=== PATIENT | female | born 1975 | race Hispanic/Latino ===

== ENCOUNTER 2020-08-03 06:20 | Emergency (ER) | payer BC ==
[2020-08-03 06:30] VITALS: BP 169/104
[2020-08-03] MEDS ORDERED: dexAMETHasone 4 MG/ML VIAL IV ONE (06:42)
[2020-08-03] MEDS ORDERED: FAMOTIDINE 20 MG/2 ML INJ IV ONE (06:42)
[2020-08-03] MEDS ORDERED: diphenhydrAMINE 50 MG/ML VIAL IV ONE (06:42)
--- NOTE | 2020-08-03 06:50 | Emergency Department Report ---
HPI - General Chief Complaint: Allergic Reaction PUI?: No Time Seen by Provider: 08/03/20 06:38 - HPI HPI: This is a 45-year-old female who experienced left-sided tongue swelling this morning. She felt like her speech was affected but no shortness of breath occurred. She states that within the last year she was taken off lisinopril after an episode of lower lip swelling. She did not require an airway procedure. She is taking amlodipine now for her blood pressure only. Last night she ate some pecan chicken which she thinks might be the instigator. She has no other complaint. ED Past Medical Hx - Past Medical History Previous Medical History?: Yes Hx Hypertension: Yes - Surgical History Past Surgical History?: Yes Additional Surgical History: Right Hip - Social History Smoking Status: Never Smoker Substance Use Type: None ED Review of Systems ROS: Stated complaint: SWOLLEN TONGUE Other details as noted in HPI Constitutional: denies: chills, fever Eyes: denies: eye pain, vision change ENT: other. denies: ear pain, throat pain Respiratory: denies: cough, shortness of breath, wheezing Cardiovascular: denies: chest pain, palpitations Endocrine: no symptoms reported Gastrointestinal: denies: abdominal pain, nausea, diarrhea Genitourinary: denies: urgency, dysuria, discharge Musculoskeletal: denies: back pain, joint swelling, arthralgia Skin: denies: rash, lesions Neurological: denies: headache, weakness, paresthesias Psychiatric: denies: anxiety, depression Hematological/Lymphatic: denies: easy bleeding, easy bruising Physical Exam - Physical Exam Vital Signs: Vital Signs 08/03/20 06:28 Temperature 98.3 F Pulse Rate 102 H Respiratory 8 L Rate Blood Pressure 169/104 O2 Sat by Pulse 96 Oximetry Physical Exam: ED Physical Exam - General Limitations: None General appearance: AAOx4 - Head Head exam: Present: atraumatic - Eye Eye exam: Present: other (Symmetrical) - ENT ENT exam: Present: normal orophraynx posteriorly, no A/W edema, mild swelling L side tongue, no obstruction - Neck Neck exam: Absent: tenderness, meningismus - Respiratory Respiratory exam: Clear to auscultation - Cardiovascular Cardiovascular Exam: Present: regular rate, normal rhythm, no systolic or diastolic murmur, rub, gallop - GI/Abdominal GI/Abdominal exam: Present: soft. Absent: non-distended - Extremities Exam Extremities exam: Absent: pedal edema - Back Exam Back exam: Present: grossly without abn finding - Neurological Exam Neurological exam: Cr N 2-12 without deficit, no motor or sensory deficit - Skin Skin exam: Present: warm, dry, or abel or conspicuous lesion ED Course Vital Signs 08/03/20 06:28 Temperature 98.3 F Pulse Rate 102 H Respiratory 8 L Rate Blood Pressure 169/104 O2 Sat by Pulse 96 Oximetry - Reevaluation(s) Reevaluation #1: Patient will be given Pepcid, Decadron, diphenhydramine. She will be observed. She is stable at this time. 08/03/20 06:57 Reevaluation #2: Swelling improved. Patient asymptomatic. 08/03/20 08:00 Critical care attestation.: If time is entered above; I have spent that time in minutes in the direct care of this critically ill patient, excluding procedure time. ED Disposition Clinical Impression: Angioedema Qualifiers: Encounter type: initial encounter Qualified Code(s): T78.3XXA - Angioneurotic edema, initial encounter Disposition: - TO HOME OR SELFCARE Is pt being admited?: No Does the pt Need Aspirin: No Condition: Stable Instructions: Angioedema, [id number] Additional Instructions: Further evaluation with an topper press operator automatic may be of value. Return to the emergency department any significant swelling, acute change or recurrent symptoms. Pepcid is [id number]. 20 mg twice a day for the next few days. Continue Benadryl unless problem resolved. Referrals: Usual, primary care [Other] - 3-5 Days Time of Disposition: 08:02
== END 2020-08-03 08:16 | disposition home or self-care (01) ==
LOC: ED 06:20
DX: T78.3XXA Angioneurotic edema, initial encounter (principal); I10 Essential (primary) hypertension; Z98.890 Other specified postprocedural states; Z88.8 Allergy status to other drugs, medicaments and biological substances; X58.XXXA Exposure to other specified factors, initial encounter
CPT/HCPCS: 96374; 96375; 99282; J1100; J1200